=== PATIENT | female | born 1970 | race African-American/Black ===

== ENCOUNTER 2018-03-25 15:23 | Emergency (ER) | payer SELFPAY ==
[2018-03-25 15:31] VITALS: BP 143/62
[2018-03-25] MEDS ORDERED: KETOROLAC TROMETHAMINE 60 MG/2 ML SDV IM ONE (16:17)
[2018-03-25] MEDS ORDERED: DEXAMETHASONE SOD PHOS INJ 10 MG/1 ML VIAL IM ONE (16:17)
[2018-03-25] MEDS ORDERED: LIDOCAINE 5% (700 MG) TRANSDERMAL ADH..PATCH TP ONE (16:17)
--- NOTE | 2018-03-25 16:46 | RADIOLOGY REPORT (SQ) ---
EXAM DESCRIPTION: L SPINE WHOLE COMPLETED DATE/TIME: 03/25/2018 4:30 pm REASON FOR STUDY: pain radiating down both legs COMPARISON: None. NUMBER OF VIEWS: Five views including obliques. TECHNIQUE: AP, lateral, oblique, and sacral radiographic images acquired of the lumbar spine. LIMITATIONS: None. FINDINGS: MINERALIZATION: Normal. SEGMENTATION: L5 looks transitional, largely sacralized in appearance. ALIGNMENT: Normal. VERTEBRAE: Maintained height. No fracture or worrisome bone lesion. DISCS: Mild disc related spurring. Disc spaces relatively preserved. POSTERIOR ELEMENTS: No pars defects. Minimal facet arthropathy without bulky degenerative overgrowth suggested. HARDWARE: None in the spine. PARASPINAL SOFT TISSUES: Normal. PELVIS: Intact as visualized. No fractures or worrisome bone lesions. SI joints intact. OTHER: Suspect artifactual lucency in the proximal aspect of the left 12th rib. Not seen on other ri b views. IMPRESSION: 1. Relatively mild lumbar spondylosis. TECHNICAL DOCUMENTATION: JOB ID: [id number] [employer]- All Rights Reserved Reading location - IP/workstation name: [email or web address]
--- NOTE | 2018-03-25 17:39 | ER Document Report ---
ED Neck/Back Problem - General Chief Complaint: Low Back Pain Stated Complaint: LOWER BACK PAIN Time Seen by Provider: 03/25/18 15:52 Mode of Arrival: Ambulatory Information source: Patient Notes: 48-year-old female was seen here earlier today for complaint of back pain in the lower back area. He states the pain has been for 2-3 days and is radiating to his legs. She states is progressively getting worse. Patient is alert and oriented respirations regular and unlabored speaking in full sentences and is able to ambulate with a steady gait. Patient states she does have a history of back pain but not this bad and not radiating down both legs. She does have a history of high blood pressure and fibroid tumors. 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 TRAVEL OUTSIDE OF THE [place] IN LAST 30 DAYS: No - HPI Patient complains to provider of: Lower back Onset: Other - 2-3 days Where: Other - No definite injury Onset: Chronic - Had back pain before but not this bad. Timing: Worse Quality of pain: Burning, Sharp Severity: Severe Pain Level: 5 Context: Lifting Recent injury: Possibly Associated symptoms: Radiation to leg, Lower back pain. 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 Lives with: Parents Family History: Reviewed & Not Pertinent Patient has suicidal ideation: No Patient has homicidal ideation: No - Past Medical History Cardiac Medical History: Reports: Hx Hypertension Pulmonary Medical History: Reports: None EENT Medical History: Reports: None Neurological Medical History: Reports: None Endocrine Medical History: Reports: None Renal/ Medical History: Reports: Other - Fibroid uterus Musculoskeltal Medical History: Reports Hx Arthritis, Reports Hx Musculoskeletal Deformity - Immunizations Immunizations up to date: Yes Hx Diphtheria, Pertussis, Tetanus Vaccination: Yes Review of Systems - Review of Systems Gastrointestinal: denies: Constipation, Fecal incontinence Genitourinary: denies: Incontinence, Retention Musculoskeletal: Back pain, Muscle pain, Muscle stiffness Physical Exam - Vital signs Vitals: Temp Pulse Resp BP Pulse Ox 99.2 F 96 16 143/62 H 97 03/25/18 15:30 03/25/18 15:30 03/25/18 15:30 03/25/18 15:30 03/25/18 15:30 - Back Back: Normal, Tender. No: Deformity/step-off, CVA tenderness, Vertebra tenderness, Scars, Scoliosis, Wounds - Neurological Neuro grossly intact: Yes Cognition: Normal Orientation: AAOx4 Rohan Coma Scale Eye Opening: Spontaneous Rohan Coma Scale Verbal: Oriented Shaw Coma Scale Motor: Obeys Commands Shaw Coma Scale Total: 15 Speech: Normal Cranial nerves: Normal Cerebellar coordination: Rapid alt. 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 Patient was treated with Toradol Decadron and Lidoderm patch for her back pain with radiation to her legs. Patient is instructed to follow-up with her primary doctor and get a follow-up with a back specialist if this pain continues. Patient was was given prescription for steroids and muscle relaxers for her pain. Patient was given instructions for ice and warm packs and Aspercreme for her pain. After performing a Medical Screening Examination, I estimate there is LOW risk for EXPANDING OR RUPTURED ABDOMINAL AORTIC ANEURYSM, CAUDA EQUINA SYNDROME, EPIDURAL MASS LESION, or HERNIATED DISK CAUSING SEVERE SPINAL STENOSIS, thus I consider the discharge disposition reasonable. I have reevaluated this patient multiple times and no significant life threatening changes are noted. The patient and I have discussed the diagnosis and risks, and we agree with discharging home and close follow-up. We also discussed returning to the Emergency Department immediately if new or worsening symptoms occur with the understanding that symptoms and presentations can change. We have discussed the symptoms which are most concerning (e.g., saddle anesthesia, urinary or bowel incontinence or retention, changing or worsening pain) that necessitate immediate return. - Vital Signs Vital signs: Temp Pulse Resp BP Pulse Ox 99.2 F 96 16 143/62 H 97 03/25/18 15:30 03/25/18 15:30 03/25/18 15:30 03/25/18 15:30 03/25/18 15:30 - Diagnostic Test Radiology reviewed: Image reviewed, Reports reviewed Discharge - Discharge Clinical Impression: Low back pain Qualifiers: Chronicity: acute Back pain laterality: bilateral Sciatica presence: with sciatica Sciatica laterality: bilateral sciatica Qualified Code(s): M54.42 - Lumbago with sciatica, left side Condition: Stable Disposition: HOME, SELF-CARE Instructions: Family Physicians / Practices Additional Instructions: LOW BACK PAIN: Three out of every four people will have an episode of disabling back pain during their lifetime. Most commonly the pain is due to straining of the muscles and ligaments in the low back. Usual treatment includes: (1) Rest on a firm surface. Avoid lying on your stomach. (2) Ice pack the painful area. After a few days, gentle heat may be used intermittently to relax the area, or ice packs can be continued. (3) Medication may be needed -- muscle relaxers and antiinflammatory medicines are commonly used. (4) As the back improves, exercises are prescribed to strengthen the back and abdominal muscles. Your doctor will advise you on the proper care for your back at each stage in your recovery. You may be better in a few days -- or healing may take several weeks. If new symptoms of a "herniated disc" (radiation of pain, numbness, or tingling down the back of the leg or weakness in the leg) occur, you should be re-examined. Further testing may be necessary. STEROID MEDICATION: You have been given a medicine of the cortisone/steroid class. This medication is used to control inflammation or allergy. It is usually only given for a short period of time, until the acute process subsides. There are usually no side effects from short-term use of cortisone-like medications. Some persons feel an increased sense of well-being and are not sleepy at bedtime. Long-term use of cortisone medications is best avoided, unless required for a severe condition. If your condition does not remit, or relapses after the course of corticosteroid medication, you should consult your physician. Stretching Exercises for the Back The physician has recommended that you begin stretching exercises for your back. These are often used even while the back is painful. However, you should notify the physician if the activities seem to increase your pain. PELVIC TILT: Lie flat on your back with knees bent. Tighten your stomach and buttock muscles so it flattens your lower back against the floor. Hold 10 seconds. Repeat 10 times, twice daily. KNEE RAISE: Lying on the back with knees bent, raise one knee to your chest, then the other. Hold both knees against the chest 10 seconds, then lower one knee at a time. Repeat 10 times, twice daily. PARTIAL TRUNK RAISE: Lie face down, arms at your sides. Keeping your waist on the floor, use your arms raise your chest up. Support yourself on your elbows for 30 seconds. Repeat twice daily, increasing the time to two minutes as you recover. Toradol Injection You have been given an injection of ketorolac tromethamine (Toradol). This is an excellent, safe drug for pain control. It also has potent antiinflammatory action. You should have significant pain relief within about one hour. Toradol is not addicting and is non-sedating. It does not interfere with driving or work. Call or return if you develop itching, hives, shortness of breath, or rash. MUSCLE RELAXERS: Muscle relaxing medications are usually prescribed for acute muscle spasm or injury to the neck and back. They are often combined with antiinflammatory pain medication for increased relief. You may stop the muscle relaxer when the pain and stiffness have improved. Start the medication again if spasms recur. Muscle relaxers may cause drowsiness, especially with the first dose. Do not operate machinery or drive while under the effects of the medication. Most muscle relaxers last up to 24 hours. Do not combine the medication with alcohol. ICE PACKS: Apply ice packs frequently against the painful area. Many different schedules are recommended, such as "20 minutes on, 20 minutes off" or "one hour ice, two hours rest." If you need to work, you may need to go longer between ice treatments. You should plan to have the area ice packed AT LEAST one fourth of the time. The ice should be applied over the wrap, tape, or splint, or over a layer of cloth -- not directly against the skin. Some ice bags have a built-in cloth and can be put directly on the skin. WARM PACKS: After approximately two days, apply gentle heat (such as a heating pad or hot water bottle) for about 20 to 30 minutes about every two hours -- at least four times daily. Warmth and elevation will help you make a more rapid recovery , and will ease the pain considerably. Do not use HOT heat, and never apply heat for longer than 30 minutes. The continuous heat can invisibly damage skin and muscles -- even when no burn is seen on the surface. Damaged muscles can make you MORE sore. You will treated with a Lidoderm patch in the emergency room. This needs to be removed in 12 hours. A prescription of Lidoderm patches is very expensive. You can get the almost equivalent medication in a salon pause or Aspercreme both of which are [id number]. Please use them according to the package instructions. FOLLOW-UP CARE: If you have been referred to a physician for follow-up care, call the physician s office for an appointment as you were instructed or within the next two days. If you experience worsening or a significant change in your symptoms, notify the physician immediately or return to the Emergency Department at any time for re-evaluation. Prescriptions: Cyclobenzaprine HCl [Flexeril 10 mg Tablet] 10 mg PO TIDP PRN #15 tab PRN Reason: Prednisone [Deltasone 20 mg Tablet] 3 tab PO DAILY 5 Days tablet Forms: Elevated Blood Pressure, Return to Work
== END 2018-03-25 17:41 | disposition home or self-care (01) ==
LOC: ER 15:23
DX: M54.42 Lumbago with sciatica, left side (principal); M79.604 Pain in right leg; M79.605 Pain in left leg; I10 Essential (primary) hypertension; Z87.891 Personal history of nicotine dependence
CPT/HCPCS: 99283; 96372; 72110; J1885; J1100

== ENCOUNTER 2019-11-20 06:55 | Emergency (ER) | payer BC ==
--- NOTE | 2019-11-20 08:10 | RADIOLOGY REPORT (SQ) ---
EXAM DESCRIPTION: HAND LEFT 3 VIEWS COMPLETED DATE/TIME: 11/20/2019 7:51 am REASON FOR STUDY: left hand pain COMPARISON: None. EXAM PARAMETERS: NUMBER OF VIEWS: Three views. TECHNIQUE: AP, lateral and oblique radiographic images acquired of the left hand. LIMITATIONS: None. FINDINGS: MINERALIZATION: Normal. BONES: No acute fracture or dislocation. No worrisome bone lesions. JOINTS: No effusions. SOFT TISSUES: No soft tissue swelling. No foreign body. OTHER: No other significant finding. IMPRESSION: NEGATIVE STUDY OF THE LEFT HAND. NO RADIOGRAPHIC EVIDENCE OF ACUTE INJURY. TECHNICAL DOCUMENTATION: JOB ID: [id number] 2010 [employer]- All Rights Reserved Reading location - IP/workstation name: [email or web address]
--- NOTE | 2019-11-20 08:48 | ER Document Report ---
ED General - General Chief Complaint: Numbness Stated Complaint: NUMBNESS LEFT HAND Time Seen by Provider: 11/20/19 07:36 Mode of Arrival: Ambulatory Information source: Patient TRAVEL OUTSIDE OF THE [place] IN LAST 30 DAYS: Yes - HPI Notes: Patient presents with left hand pain and some mild numbness. She states the pain is mainly about the metacarpophalangeal joint of the thumb she has noticed some swelling there as well. She states the numbness does spread to all fingers. She states she is unable to make a fist due to pain and this pain seems to be in all the joints of the hand. 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 She denies any previous history of similar problems. No other joint pain. No other numbness or weakness anywhere. This started 2 to 3 days ago. It is worse with movement and better with rest. The pain radiates throughout the hand. It is mild to moderate intensity. It is an aching sensation. No known trauma. - Related Data Allergies/Adverse Reactions: No Known Allergies Allergy (Verified 11/20/19 07:01) Past Medical History - General Information source: Patient - Social History Smoking Status: Former Smoker Frequency of alcohol use: None Drug Abuse: None Family History: Reviewed & Not Pertinent Patient has suicidal ideation: No Patient has homicidal ideation: No - Past Medical History Cardiac Medical History: Reports: Hx Hypertension Renal/ Medical History: Denies: Hx Peritoneal Dialysis Musculoskeletal Medical History: Reports Hx Arthritis, Reports Hx Musculoskeletal Deformity - Immunizations Immunizations up to date: Yes Hx Diphtheria, Pertussis, Tetanus Vaccination: Yes Review of Systems - Review of Systems Constitutional: denies: Chills, Fever Cardiovascular: denies: Chest pain, Palpitations Respiratory: denies: Cough, Short of breath -: Yes All other systems reviewed and negative Physical Exam - Vital signs Vitals: Temp Pulse Resp BP Pulse Ox 98.0 F 87 16 145/79 H 98 11/20/19 07:06 11/20/19 07:06 11/20/19 07:06 11/20/19 07:06 11/20/19 07:06 Interpretation: Normal - General General appearance: Appears well, Alert - HEENT Head: Normocephalic, Atraumatic Eyes: Normal Pupils: PERRL - Respiratory Respiratory status: No respiratory distress Chest status: Nontender Breath sounds: Normal Chest palpation: Normal - Cardiovascular Rhythm: Regular Heart sounds: Normal auscultation Murmur: No - Abdominal Inspection: Normal Distension: No distension Bowel sounds: Normal Tenderness: Nontender Organomegaly: No organomegaly - Back Back: Normal, Nontender - Extremities General upper extremity: Normal color, Normal temperature, Other - Left hand has some mild swelling about the thenar eminence. She does have tenderness to palpation of the thenar eminence. There is no induration or evidence of infection. Patient is unable to make a complete fist on the left and if I try to passively close her fingers she states that this increases her pain. General lower extremity: Normal inspection, Nontender, Normal color, Normal ROM, Normal temperature, Normal weight bearing. No: Magui's sign - Neurological Neuro grossly intact: Yes Cognition: Normal Orientation: AAOx4 Rohan Coma Scale Eye Opening: Spontaneous Rohan Coma Scale Verbal: Oriented [place] Coma Scale Motor: Obeys Commands Rohan Coma Scale Total: 15 Speech: Normal Motor strength normal: LUE, RUE, LLE, RLE Sensory: Normal - Psychological Associated symptoms: Normal affect, Normal mood - Skin Skin Temperature: Warm Skin Moisture: Dry Skin Color: Normal Course - Vital Signs Vital signs: Temp Pulse Resp BP Pulse Ox 98.0 F 87 16 145/79 H 98 11/20/19 07:06 11/20/19 07:06 11/20/19 07:06 11/20/19 07:06 11/20/19 07:06 - Diagnostic Test Radiology reviewed: Image reviewed, Reports reviewed Procedures - Immobilization Left Wrist Time completed: 08:53 Pre-Proc Neuro Vasc Exam: Normal Immobilizer type: Cock-up Performed by: RN Post-Proc Neuro Vasc Exam: Normal Alignment checked and good: Yes Discharge - Discharge Clinical Impression: Arthralgia of left hand Condition: Stable Disposition: HOME, SELF-CARE Instructions: Osteoarthritis ([facility]) Prescriptions: Indomethacin [Indocin 50 Mg Capsule] 50 mg PO BID 5 Days #10 capsule Forms: Return to Work Referrals: [facility] [Provider Group] - Follow up in 3-5 days
[2019-11-20 09:56] VITALS: BP 121/57
== END 2019-11-20 09:57 | disposition home or self-care (01) ==
LOC: ER 06:55
DX: M25.542 Pain in joints of left hand (principal); R20.0 Anesthesia of skin; M79.89 Other specified soft tissue disorders; I10 Essential (primary) hypertension; Z87.891 Personal history of nicotine dependence
CPT/HCPCS: 99284

== ENCOUNTER 2019-11-26 18:35 | Emergency (ER) | payer BC | END 2019-11-27 01:31 | disposition left against medical advice (07) | LOC: ER 18:35 | DX: Z53.21 Procedure and treatment not carried out due to patient leaving prior to being seen by health care provider (principal) ==

== ENCOUNTER 2020-03-28 20:54 | Emergency (ER) | payer BC ==
[2020-03-28 21:53] VITALS: BP 167/89
[2020-03-28] MEDS ORDERED: CEFTRIAXONE INJ 1000 MG VIAL IM ONE (23:47)
--- NOTE | 2020-03-28 23:53 | ER Document Report ---
ED General - General Chief Complaint: Rash Stated Complaint: PAINFUL RASH ON LEG Notes: Patient is a 50-year-old -[place] female with a history of carpal tunnel and arthritis who presents to the emergency department with a chief complaint of red painful area of her lower leg on the left that she first noticed tonight. She states she felt a fleeting pain and thought something was on her leg reached down to brush it away and noticed a redness to the medial mid lower leg. She states she started feeling around and noticed the area was very tender to the touch and very warm. She denies any drainage. Denies any recent fevers, chills or night sweats. No other pain, complaints or concerns at this time. Patient denies any immunosuppressive conditions or medicines. TRAVEL OUTSIDE OF THE [place] IN LAST 30 DAYS: Yes - Related Data Allergies/Adverse Reactions: No Known Allergies Allergy (Verified 11/20/19 07:01) Past Medical History - Social History Smoking Status: Unknown if Ever Smoked Family History: Reviewed & Not Pertinent - Past Medical History Cardiac Medical History: Reports: Hx Hypertension Renal/ Medical History: Denies: Hx Peritoneal Dialysis Musculoskeletal Medical History: Reports Hx Arthritis, Reports Hx Musculoskeletal Deformity - Immunizations Immunizations up to date: Yes Hx Diphtheria, Pertussis, Tetanus Vaccination: Yes Review of Systems - Review of Systems Skin: Change in color -: Yes All other systems reviewed and negative Physical Exam - Vital signs Vitals: Temp Pulse Resp BP Pulse Ox 98.7 F 101 H 20 167/89 H 100 03/28/20 21:51 03/28/20 21:51 03/28/20 21:51 03/28/20 21:51 03/28/20 21:51 - General General appearance: Appears well, Alert In distress: None - Respiratory Respiratory status: No respiratory distress Chest status: Nontender Breath sounds: Normal Chest palpation: Normal - Cardiovascular Rhythm: Regular Heart sounds: Normal auscultation - Extremities General lower extremity: Other - Chronic lower extremity edema bilaterally consistent with poor venous return. 2+ DP/PT bilaterally. There is an area of erythema and increased warmth primarily to the posterior left lower leg with some centralized desquamation and expansion medially towards the anterior surface, consistent with a cellulitis. No fluctuance or fluid collection appreciated. No proximal streaking. Negative Homans of the calf of the affected leg. - Neurological Neuro grossly intact: Yes Cognition: Normal Orientation: AAOx4 - Psychological Associated symptoms: Normal affect, Normal mood - Skin Skin Color: Other - As described above Course - Re-evaluation Re-evalutation: 03/28/20 23:54 History and physical consistent with a cellulitis. Patient is afebrile, no evidence of systemic infection. Given a gram of Rocephin IM here. Sent home on Bactrim. She will follow-up in 2 to 3 days with her regular doctor for wound recheck and reevaluation. Advise she return here or any ER immediately with any new, persistent or worsening symptoms. She verbalized understood and agreed. - Vital Signs Vital signs: Temp Pulse Resp BP Pulse Ox 98.7 F 101 H 20 167/89 H 100 03/28/20 21:51 03/28/20 21:51 03/28/20 21:51 03/28/20 21:51 03/28/20 21:51 Discharge - Discharge Clinical Impression: Cellulitis Qualifiers: Site of cellulitis: extremity Site of cellulitis of extremity: lower extremity Laterality: unspecified laterality Qualified Code(s): L03.119 - Cellulitis of unspecified part of limb Condition: Stable Disposition: HOME, SELF-CARE Instructions: Cellulitis ([facility]) Additional Instructions: Follow-up with your regular doctor in 2 to 3 days for reevaluation. Return here or any ER immediately with any new, persistent or worsening symptoms. Prescriptions: Sulfamethoxazole/Trimethoprim [Bactrim Ds Tablet] 1 each PO BID #20 tablet
== END 2020-03-28 23:58 | disposition home or self-care (01) ==
LOC: ER 20:54
DX: L03.119 Cellulitis of unspecified part of limb (principal); R60.0 Localized edema; I10 Essential (primary) hypertension
CPT/HCPCS: 99283; 96372; J0696

== ENCOUNTER 2020-05-12 16:39 | Emergency (ER) | payer BC ==
--- NOTE | 2020-05-12 17:04 | ER Document Report ---
ED Medical Screen (RME) - General Chief Complaint: Lower Abdominal Pain Stated Complaint: BLOOD IN URINE Time Seen by Provider: 05/12/20 16:55 Mode of Arrival: Ambulatory Information source: Patient Notes: 50-year-old female presents to ED for complaint of blood in urine lower abdominal and lower back pain. She does have a history of fibroid uterus as well as irregular heart rate and 1 kidney does not function properly. She is alert oriented respirations regular nonlabored speaking in full sentences. I have greeted and performed a rapid initial assessment of this patient. A [facility] prehensive ED assessment and evaluation of the patient, analysis of test results and completion of medical decision making process will be conducted by an additional ED providers. TRAVEL OUTSIDE OF THE [place] IN LAST 30 DAYS: Yes - Related Data Allergies/Adverse Reactions: No Known Allergies Allergy (Verified 05/12/20 16:53) Past Medical History - Social History Chew tobacco use (# tins/day): No Frequency of alcohol use: None Drug Abuse: None - Past Medical History Cardiac Medical History: Reports: Hx Hypertension Renal/ Medical History: Denies: Hx Peritoneal Dialysis Musculoskeltal Medical History: Reports Hx Arthritis, Reports Hx Musculoskeletal Deformity - Immunizations Immunizations up to date: Yes Hx Diphtheria, Pertussis, Tetanus Vaccination: Yes
[2020-05-12 17:50] LABS: AMORPHOUS SEDIMENT,URINE TRACE /HPF; APPEARANCE,URINE CLOUDY; BILIRUBIN,URINE NEGATIVE (NEGATIVE); COLOR,URINE RED; GLUCOSE, URINE NEGATIVE (NEGATIVE); KETONES,URINE NEGATIVE (NEGATIVE); LEUKOCYTE ESTERASE,URINE MODERATE (NEGATIVE); NITRITE,URINE NEGATIVE (NEGATIVE); PROTEIN,URINE 100 mg/dL (NEGATIVE); URINE SPECIFIC GRAVITY 1.016; UROBILINOGEN,URINE NEGATIVE mg/dL (<2.0)
[2020-05-12 18:05] LABS: ALBUMIN 4.5 g/dL (3.5-5.0); ALKALINE PHOSPHATASE 68 U/L (38-126); ANION GAP 8 (5-19); ASPARTATE AMINO TRANSFERASE 15 U/L (14-36); BILIRUBIN,TOTAL 0.3 mg/dL (0.2-1.3); BLOOD UREA NITROGEN 8 mg/dL (7-20); CALCIUM 9.3 mg/dL (8.4-10.2); CARBON DIOXIDE 27 mmol/L (22-30); CHLORIDE 98 mmol/L (98-107); GLUCOSE 102 mg/dL (75-110); POTASSIUM 4.1 mmol/L (3.6-5.0); TOTAL PROTEIN 8.4 g/dL (6.3-8.2)
--- NOTE | 2020-05-12 18:54 | RADIOLOGY REPORT (SQ) ---
EXAM DESCRIPTION: U/S NON-OB PELVIS W/O DOP IMAGES COMPLETED DATE/TIME: 05/12/2020 6:38 pm REASON FOR STUDY: Pelvic pain blood in her urine COMPARISON: None. TECHNIQUE: Dynamic and static grayscale images acquired of the pelvis via transabdominal approach an d recorded on PACS. Additional selected color Doppler and spectral images recorded. LIMITATIONS: Limited examination due to the patient's body habitus. FINDINGS: UTERUS: Significant marked enlargement of the uterus. The patient has a history of uteri ne fibroids. ENDOMETRIAL STRIPE: Not visualized. CERVIX: Not visualized. RIGHT OVARY AND DOPPLER: Not visualized due to the enlarged uterus. LEFT OVARY AND DOPPLER: Not visualized due to the enlarged uterus. FREE FLUID: None noted. OTHER: No other significant finding. MEASUREMENTS: UTERUS: 21.6 x 13.3 x 11.8 cm. IMPRESSION: 1. The examination is limited due to the patient's body habitus and significant marked enlargement of the uterus. The patient has a history of uterine fibroids. 2. The cervix, endometrial stripe, and ovaries are not visualized, limited by the enlarged uterus. TECHNICAL DOCUMENTATION: JOB ID: [id number] 2010 [employer]- All Rights Reserved Rev-02/16 Reading location - IP/workstation name: [email or web address]
[2020-05-12] MEDS ORDERED: KETOROLAC TROMETHAMINE INJ/PF 30 MG/1 ML SDV IV ONE (19:09)
[2020-05-12] MEDS ORDERED: CEFTRIAXONE INJ 1000 MG VIAL IV ONE (19:09)
[2020-05-12] MEDS ORDERED: NORMAL SALINE 1000 ML 1,000 ML IV ONE (19:10)
[2020-05-12] MEDS ORDERED: FENTANYL CITRATE INJ/PF 100 MCG/2 ML AMPUL IV ONE (19:16)
[2020-05-12] MEDS ORDERED: ONDANSETRON HCL INJ/PF 4 MG/2 ML SDV IV ONE (19:16)
[2020-05-12 19:24] LABS: ABSOLUTE EOSINOPHILS # (AUTO) 0.1 10^3/uL (0.0-0.6); ABSOLUTE LYMPHOCYTES (AUTO) 0.6 10^3/uL (0.5-4.7); ABSOLUTE MONOCYTES (AUTO) 0.5 10^3/uL (0.1-1.4); ABSOLUTE NEUT (AUTO) 7.3 10^3/uL (1.7-8.2); BASOPHILS % (AUTO) 0.4 % (0-2); EOSINOPHILS % (AUTO) 1.2 % (0-6); HEMATOCRIT 26.2 % (36.0-47.0); LYMPHOCYTES % (AUTO) 6.9 % (13-45); MEAN CORPUSCULAR HEMOGLOBIN 16.8 pg (27.0-33.4); MEAN CORPUSCULAR HGB CONC 28.4 g/dL (32.0-36.0); MONOCYTES % (AUTO) 5.6 % (3-13); PLATELET COUNT 368 10^3/uL (150-450); RED BLOOD COUNT 4.44 10^6/uL (3.72-5.28); RED CELL DISTRIBUTION WIDTH 20.3 % (11.5-14.0); SEGMENTED NEUTROPHILS % (AUTO) 85.9 % (42-78); TOTAL CELLS COUNTED % (AUTO) 100 %; WHITE BLOOD COUNT 8.4 10^3/uL (4.0-10.5)
--- NOTE | 2020-05-12 19:24 | RADIOLOGY REPORT (SQ) ---
EXAM DESCRIPTION: CT ABD/PELVIS NO ORAL OR IV IMAGES COMPLETED DATE/TIME: 05/12/2020 6:45 pm REASON FOR STUDY: hematuria and abd. pain COMPARISON: None. TECHNIQUE: CT scan of the abdomen and pelvis performed without intravenous or oral contrast. Images reviewed with lung, soft tissue, and bone windows. Reconstructed coronal and sagittal MPR images revi ewed. All images stored on PACS. All CT scanners at this facility use dose modulation, iterative reconstruction, and/or weight based d osing when appropriate to reduce radiation dose to as low as reasonably achievable (ALARA). [facility]: Dose Right [facility]: CareDose [facility]: Dose Right [facility]: Teradose 4D [facility]: [place] RADIATION DOSE: CT Rad equipment meets quality standard of care and radiation dose reduction techniq ues were employed. CTDIvol: 19.1 mGy. DLP: 1030 mGy-cm. LIMITATIONS: None. FINDINGS: LOWER CHEST: No significant findings. No nodules or infiltrates. NON-CONTRASTED LIVER, SPLEEN, ADRENALS: Evaluation limited by lack of IV contrast. No identified sign ificant masses. PANCREAS: No masses. No peripancreatic inflammatory changes. GALLBLADDER: No identified stones by CT criteria. No inflammatory changes to suggest cholecystitis. RIGHT KIDNEY AND URETER: No suspicious masses. Assessment limited by lack of IV contrast. No signif icant calcifications. No hydronephrosis or hydroureter. LEFT KIDNEY AND URETER: No suspicious masses. Assessment limited by lack of IV contrast. No signifi cant calcifications. No hydronephrosis or hydroureter. AORTA AND RETROPERITONEUM: No aneurysm. No retroperitoneal masses or adenopathy. BOWEL AND PERITONEAL CAVITY: The bowel is displaced to the right and left of the midline by the enla rged abdominopelvic mass. No evidence of obstruction. APPENDIX: Normal. PELVIS, BLADDER, AND ABDOMINAL WALL: A very large umbilical hernia contains engorged mesenteric vess els, fat and loculated collections of fluid. There is a hazy appearance to the fat which may be on t he basis of inflammatory/edematous changes. A smaller periumbilical hernia is noted adjacent to the larger hernia. The overlying subcutaneous tissue in the mid abdomen and pelvic region are mildly thi ckened with linear reticulation noted suggesting edema. Considerations for these findings include ob struction/strangulation of the hernias. Extremely large abdominopelvic mass extends from the pelvis up into the mid abdomen, to about the lev el of the L1-L2 disc space. There are multiple heterogenous appearing masses within the abdominopelv ic mass. One of the largest is exophytic and extends from the midline to the left side of the abdome n, and measures 18.5 cm x 11.2 cm. There are several small calcifications present within the exophyt ic mass and the abdominopelvic mass as well as a round calcified 2.9 cm in AP diameter mass. A small amount collection of free fluid lies to the left of the mass, in the lower left quadrant of the abdo men. Considerations for this finding includes an extremely large fibroid uterus, with the possibilit y of underlying malignant pathology not entirely excluded. The urinary bladder is incompletely diste nded. BONES: No significant findings. OTHER: No other significant finding. IMPRESSION: 1. A very large umbilical hernia with a smaller adjacent periumbilical hernia identifie d superior and adjacent to the larger hernia. The constellation of findings as described above sugge st strangulation/obstruction of the hernias. 2. Extremely large massive abdominopelvic mass as detailed above. Considerations for this finding i ncludes fibroid uterus. A small collection of fluid lies adjacent to the left side of the mass, in t he left lower quadrant of the abdomen. Correlation is definitely suggested as the possibility of mal ignant pathology is not entirely excluded. COMMENT: 1. The results of this examination were discussed with the emergency department provider o n 05/12/2020 at 19:14 hours. Quality ID # [id number]: Final reports with documentation of one or more dose reduction techniques (e.g., Au tomated exposure control, adjustment of the mA and/or kV according to patient size, use of iterative reconstruction technique) TECHNICAL DOCUMENTATION: JOB ID: [id number] 2010 [employer]- All Rights Reserved Reading location - IP/workstation name: [email or web address]
--- NOTE | 2020-05-12 19:36 | ER Document Report ---
ED General - General Chief Complaint: Lower Abdominal Pain Stated Complaint: BLOOD IN URINE Time Seen by Provider: 05/12/20 16:55 Mode of Arrival: Ambulatory TRAVEL OUTSIDE OF THE [place] IN LAST 30 DAYS: Yes - HPI Notes: Chief complaint: Lower abdominal pain History of present illness: 50-year-old female who is followed by primary care clinic at [facility] with history of a large fibroid uterus, chronic iron deficiency anemia and umbilical hernia with no prior surgery now presents with pain of lower abdomen on onset sometime after she awakened this morning. This was not associated with any traumatic event. She denies nausea vomiting. She denies fever chills. She does have some pain with urination and also notes that she has had some gross blood in her urine today. She denies any known history of renal stones. - Related Data Allergies/Adverse Reactions: No Known Allergies Allergy (Verified 05/12/20 16:53) Past Medical History - General Information source: Patient, ON LICENSE OF [facility] Records Last Menstrual Period: 04/23/20 - Social History Smoking Status: Never Smoker Chew tobacco use (# tins/day): No Frequency of alcohol use: None Drug Abuse: None Lives with: Family Family History: Reviewed & Not Pertinent Patient has homicidal ideation: No - Past Medical History Cardiac Medical History: Reports: Hx Hypertension Endocrine Medical History: Denies: Hx Diabetes Mellitus Type 1, Hx Diabetes Mellitus Type 2 Renal/ Medical History: Denies: Hx Peritoneal Dialysis GI Medical History: Reports: Other - History of umbilical hernia which is never been repaired Musculoskeletal Medical History: Reports Hx Arthritis, Reports Hx Musculoskeletal Deformity Past Surgical History: Reports: None - Immunizations Immunizations up to date: Yes Hx Diphtheria, Pertussis, Tetanus Vaccination: Yes Review of Systems - Review of Systems Notes: Constitutional: Negative for fever. HENT: Negative for sore throat. Eyes: Negative for visual changes. Cardiovascular: Negative for chest pain. Respiratory: Negative for shortness of breath. Gastrointestinal: As per HPI. Genitourinary: As per HPI. Musculoskeletal: Negative for back pain. Skin: Negative for rash. Neurological: Negative for headaches, weakness or numbness. 10 point ROS negative except as marked above and in HPI. Physical Exam - Vital signs Vitals: Temp Pulse Resp BP Pulse Ox 97.5 F 98 16 153/91 H 100 05/12/20 16:43 05/12/20 16:43 05/12/20 16:43 05/12/20 16:43 05/12/20 16:43 - Notes Notes: GENERAL: Morbidly obese middle-aged female holding her lower abdomen complaining of moderate pain. SKIN: Good turgor no rashes. HEAD: Normocephalic atraumatic. EYES: PERRLA. EOMI. Conjunctivae and sclerae clear. EARS: CANALS AND TMS CLEAR. NOSE: CLEAR. MOUTH: Moist mucosa. Good dentition. No stridor or edema. No drooling. NECK: Supple. No masses or thyromegaly. No adenopathy. Carotids 2+ without bruits. No JVD. BACK: Symmetrical without tenderness. CHEST: Respirations unlabored. Breath sounds clear and symmetrical. HEART: Regular rhythm. No murmur gallop or rub. ABDOMEN: Obese with tender mass midline below the umbilicus. Patient is also tender in suprapubic area. No hepatosplenomegaly bowel sounds normally active. No bruits. GENITALIA: Deferred. EXTREMITIES: No edema. No calf tenderness. Cap refill less than 1.5 seconds. Dorsalis pedis and posterior tibial pulses 3+ and symmetrical. NEUROLOGICAL: GCS 15. Alert and oriented x3. Fluent speech. Cranial nerves II through XII intact. Sensorimotor and cerebellar normal. Normal tone. PSYCHIATRIC: Anxious affect. Course - Re-evaluation Re-evalutation: 05/12/20 20:24 Large strangulated umbilical hernia present we will consult Dr. Zavala from general surgery. Patient is also anemic 7.4 g hemoglobin and has microcytic indices consistent with history of hypermenorrhea related to fibroid uterus. Additionally has findings suggestive of a urinary tract infection. I have given her dose of IV Rocephin. 05/12/20 21:31 Appreciate consultation note from Dr. Zavala from general surgery. He feels that there is no evidence of herniation of the intestinal structures and that this is a chronic herniation of primarily omentum and subcutaneous fat. He does not feel there is any current indication for urgent surgery. Patient is very comfortable after 1 dose of fentanyl here. She is also received IV Rocephin for presumed UTI. Urine culture has been sent. She is very anemic with a hemoglobin of 7.4 g but this appears to be chronic and she is not ortho static. Her indices are small consistent with chronic blood loss and she has a history of hypermenorrhea related to her fibroid uterus although she is not currently having any vaginal bleeding. I am going to put her on some oral iron. We will give her some as needed pain medication for home and will keep her on oral antibiotics for her UTI. I recommend she contact her primary physician at [facility] tomorrow morning and arrange urgent follow-up regarding all these problems. Findings, clinical impression and plan of treatment have been discussed with patient/family. Understanding of current findings and recommendations has been acknowledged by them and there is agreement regarding disposition and follow-up. - Vital Signs Vital signs: Temp Pulse Resp BP Pulse Ox 97.5 F 98 16 153/91 H 100 05/12/20 16:43 05/12/20 16:43 05/12/20 16:43 05/12/20 16:43 05/12/20 16:43 - Laboratory Result Diagrams: 05/12/20 18:59 05/12/20 17:24 Laboratory results interpreted by me: 05/12/20 05/12/20 05/12/20 17:24 17:24 18:59 Hgb 7.4 L Hct 26.2 L MCV 59 L MCH 16.8 L MCHC 28.4 L RDW 20.3 H Lymph % (Auto) 6.9 L Seg Neutrophils % 85.9 H Sodium 133.4 L Lactic Acid Total Protein 8.4 H Urine Protein 100 H Urine Blood LARGE H Ur Leukocyte Esterase MODERATE H 05/12/20 20:28 Hgb Hct MCV MCH MCHC RDW Lymph % (Auto) Seg Neutrophils % Sodium Lactic Acid 2.3 H Total Protein Urine Protein Urine Blood Ur Leukocyte Esterase - Diagnostic Test Radiology reviewed: Reports reviewed - Radiologist reports large strangulated umbilical hernia on noncontrast CT abdomen/pelvis with very large fibroid uterus also present. Discharge - Discharge Clinical Impression: Fibroid uterus, Strangulated umbilical hernia, Chronic microcytic anemia, Hemorrhagic cystitis Condition: Stable Disposition: HOME, SELF-CARE Additional Instructions: Umbilical Hernia There is a hernia in the belly-button area, called an umbilical hernia. There's a weak spot in the abdominal wall where the umbilical cord was attached. Sometimes this weak spot opens up, and bowel slips out of the abdominal cavity, creating a bulge under the skin at the naval. In infants, a small umbilical hernia may seal off by itself. Adults usually need surgery to repair the hernia. It's important that you follow up as recommended. For now, avoid straining, heavy lifting, and vigorous exercise. If the hernia has just appeared and the naval area is painful, apply ice packs to reduce swelling. Complications occur if bowel gets tightly stuck in the hernia. You should come back immediately if the area becomes increasingly painful, swollen, or discolored, or if you develop abdominal pain and vomiting. Hematuria Hematuria, or blood in your urine, can be caused by minor medical problems, such as a bladder infection, or by more serious medical conditions, such as kidney stones or even tumors of the bladder or kidney. If the cause of the hematuria is known (such as a bladder infection) and can be treated, it may not need further evaluation. If the cause is not known, it will usually require further evaluation by a specialist, such as a urologist. In particular, unexplained hematuria in the older patient must be evaluated to rule out a serious condition, such as a bladder or kidney tumor. If the hematuria worsens or you are passing clots and then are unable to urinate, you should be re-evaluated. A catheter may need to be placed in the bladder to permit passage of urine. If you develop high fever, severe pain, or other new or worsening symptoms, return to the Emergency Department for re- evaluation. Urinary Tract Infection Your evaluation indicates that you have a urinary tract infection. This is due to germs growing in the bladder. This is a common problem. This infection usually responds quickly to antibiotics. Your antibiotic should be taken exactly as prescribed. Drink plenty of fluids -- three to four quarts a day. Occasionally, a bladder anesthetic will be prescribed to help stop the feeling of urgency until the antibiotic has a chance to clear the infection. This may cause your urine to be dark orange. Certain urine infections require a culture. If the doctor obtained a culture, the results will be back in two days. You should call to see if a change in treatment is needed. A repeat urinalysis after you finish treatment is often recommended. The physician will let you know if further testing is required. Call the doctor if you develop fever, chills, flank pain, inability to urinate, or blood in the urine. Anemia, Iron Deficiency You have anemia (a lower than normal amount of red blood cells). Our tests show it's due to lack of iron in your body. In infants and children, iron deficiency is usually due to lack of iron in the diet. In adults, it's most often caused by blood loss (heavy periods or intestinal bleeding) or by . If the cause of iron deficiency is not clear, we evaluate for hidden intestinal bleeding. Another possible cause is failure to absorb iron properly. Iron-deficiency is treated with iron supplements. Iron pills can upset your stomach and cause constipation. Taking it with food decreases nausea. Expect the stool to become darker (but not black). Taking iron with a juice high in vitamin C (orange juice, tomato juice) increases absorption. You can increase your dietary iron by eating liver, oysters, and lean beef; wheat germ, peas, and lentils; and molasses, dried prunes, spinach, and broccoli. Contact the doctor at once if you note black or tarry-looking stools, bloody vomiting, shortness of breath, chest pain, or faintness. Contact your doctor at [facility] tomorrow for follow-up on all of your problems. You may return to the emergency department for new or worsening problems: Uncontrolled pain Development of vomiting High fever/shaking chills Fainting Overall worsening Prescriptions: Tramadol HCl [Ultram 50 mg Tablet] 50 mg PO Q4HP PRN #12 tab PRN Reason: Cephalexin Monohydrate [Keflex 500 mg Capsule] 500 mg PO Q6H 5 Days capsule Referrals: [facility] [Provider Group] - Follow up as needed
[2020-05-12 19:43] LABS: HEMOGLOBIN 7.4 g/dL (12.0-15.5)
[2020-05-12 19:44] LABS: MEAN CORPUSCULAR VOLUME 59 fl (80-97)
[2020-05-12 19:53] LABS: POLYCHROMASIA SLIGHT
[2020-05-12 19:54] LABS: ANISOCYTOSIS 2+; OVALOCYTES 1+
[2020-05-12 19:55] LABS: HYPOCHROMASIA 3+; PLATELET COMMENT ADEQUATE; TEAR DROP CELLS SLIGHT
--- NOTE | 2020-05-12 21:10 | PDOC CONSULTATION ---
Consultation Consult Date: 05/12/20 Attending physician:: HERMINIA LLANES Provider Consulted: KADEEM THOMAS Consult reason:: umbilical hernia History of Present Illness History of Present Illness: SIENNA PENDLETON is a 50 year old female who is followed by primary care clinic at [facility] with history of a large fibroid uterus, chronic iron deficiency anemia and umbilical hernia with no prior surgery now presents with pain of lower abdomen on onset sometime after she awakened this morning. This was not associated with any traumatic event. She denies nausea vomiting. She denies fever chills. She does have some pain with urination and also notes that she has had some gross blood in her urine today. She denies any known history of renal stones. Patient also states she has had a large umbilical mass protrusion consistent with this hernia for quite a while. She states that it does not get bigger or smaller and always remains the same size and currently does not have any any more significant pain than usual in her abdomen. She presented today because of blood in her urine. Denies any nausea or vomiting or constipation. Past Medical History Cardiac Medical History: Reports: Hypertension Endocrine Medical History: Denies: Diabetes Mellitus Type 1, Diabetes Mellitus Type 2 GI Medical History: Reports: Other - History of umbilical hernia which is never been repaired Musculoskeltal Medical History: Reports: Arthritis Past Surgical History Past Surgical History: Reports: None Social History Lives with: Family Smoking Status: Never Smoker Electronic Cigarette use?: No Family History Family History: Reviewed & Not Pertinent Parental Family History Reviewed: No Children Family History Reviewed: NA Sibling(s) Family History Reviewed.: NA Medication/Allergy Home Medications: Nitrofurantoin/Nitrofuran Mac [Macrobid 100 mg Capsule] 100 mg PO BID #10 capsule 10/23/12 No Home Medications 10/23/12 Cyclobenzaprine HCl [Flexeril 10 mg Tablet] 10 mg PO TIDP PRN #15 tab 03/25/18 Prednisone [Deltasone 20 mg Tablet] 3 tab PO DAILY 5 Days tablet 03/25/18 Indomethacin [Indocin 50 Mg Capsule] 50 mg PO BID 5 Days #10 capsule 11/20/19 Sulfamethoxazole/Trimethoprim [Bactrim Ds Tablet] 1 each PO BID #20 tablet 03/28/20 Allergies/Adverse Reactions: No Known Allergies Allergy (Verified 05/12/20 16:53) Review of Systems Constitutional: PRESENT: fatigue Eyes: ABSENT: as per HPI, visual disturbances, other Ears: ABSENT: as per HPI, hearing changes, other Nose, Mouth, and Throat: ABSENT: as per HPI, headache(s), mouth pain, sore throat, vertigo, other Breasts: ABSENT: as per HPI, other Cardiovascular: ABSENT: as per HPI, chest pain, dyspnea on exertion, edema, orthropnea, palpitations, other Respiratory: ABSENT: as per HPI, cough, dyspnea, hemoptysis, sputum, other Gastrointestinal: PRESENT: abdominal pain Genitourinary: PRESENT: hematuria Musculoskeletal: ABSENT: as per HPI, back pain, deformity, joint swelling, muscle weakness, other Integumentary: ABSENT: as per HPI, diaphoresis, erythema, lesions, pruritus, rash, wounds, other Neurological: ABSENT: as per HPI, abnormal gait, abnormal movements, abnormal speech, confusion, convulsions, dizziness, focal weakness, frequent falls, lack of coordination, memory loss, numbness, paresthesias, restless legs, syncope, tingling, tremor(s), vertigo, weakness, other Psychiatric: ABSENT: as per HPI, anxiety, depression, hallucinations, homidical ideation, suicidal ideation, other Endocrine: ABSENT: as per HPI, cold intolerance, flushing, heat intolerance, menstrual abnormalities, polydipsia, polyphagia, polyuria, other Hematologic/Lymphatic: ABSENT: as per HPI, easy bleeding, easy bruising, lymphadenopathy, other Allergic/Immunologic: ABSENT: as per HPI, seasonal rhinorrhea, other Physical Exam Vital Signs: Temp Pulse Resp BP Pulse Ox 97.5 F 98 16 153/91 H 100 05/12/20 16:43 05/12/20 16:43 05/12/20 16:43 05/12/20 16:43 05/12/20 16:43 Intake & Output 05/11/20 05/12/20 05/13/20 06:59 06:59 06:59 Weight 118.3 kg General appearance: PRESENT: mild distress Head exam: PRESENT: normocephalic Eye exam: PRESENT: EOMI Ear exam: PRESENT: normal external ear exam Mouth exam: PRESENT: moist Teeth exam: PRESENT: poor dentation Neck exam: PRESENT: full ROM Respiratory exam: PRESENT: clear to auscultation odessa Cardiovascular exam: PRESENT: RRR Pulses: PRESENT: normal radial pulses, normal femoral pulses Vascular exam: PRESENT: normal capillary refill Breast: PRESENT: Normal GI/Abdominal exam: PRESENT: other - There is a periumbilical mass that is firm and tender to palpation consistent with a periumbilical hernia that is not reducible. Rectal exam: PRESENT: deferred Extremities exam: PRESENT: full ROM Musculoskeletal exam: PRESENT: full ROM Neurological exam: PRESENT: alert, awake, oriented to person, oriented to place Psychiatric exam: PRESENT: appropriate affect Skin exam: PRESENT: dry Results Laboratory Results: 05/12/20 18:59 05/12/20 17:24 05/12/20 05/12/20 05/12/20 17:24 17:24 17:24 WBC Cancelled RBC Cancelled Hgb Cancelled Hct Cancelled MCV Cancelled MCH Cancelled MCHC Cancelled RDW Cancelled Plt Count Cancelled Seg Neutrophils % Cancelled Sodium 133.4 L Potassium 4.1 Chloride 98 Carbon Dioxide 27 Anion Gap 8 BUN 8 Creatinine 0.69 Est GFR ( Amer) > 60 Glucose 102 Calcium 9.3 Total Bilirubin 0.3 AST 15 Alkaline Phosphatase 68 Total Protein 8.4 H Albumin 4.5 Lipase 83.9 Serum HCG, Qual NEGATIVE Urine Color Urine Appearance Urine pH Ur Specific [place] Urine Protein Urine Glucose (UA) Urine Ketones Urine Blood Urine Nitrite Ur Leukocyte Esterase Urine WBC (Auto) Urine RBC (Auto) 05/12/20 05/12/20 17:24 18:59 WBC 8.4 RBC 4.44 Hgb 7.4 L Hct 26.2 L MCV 59 L MCH 16.8 L MCHC 28.4 L RDW 20.3 H Plt Count 368 Seg Neutrophils % 85.9 H Sodium Potassium Chloride Carbon Dioxide Anion Gap BUN Creatinine Est GFR ( Amer) Glucose Calcium Total Bilirubin AST Alkaline Phosphatase Total Protein Albumin Lipase Serum HCG, Qual Urine Color RED Urine Appearance CLOUDY Urine pH 7.0 Ur Specific [place] 1.016 Urine Protein 100 H Urine Glucose (UA) NEGATIVE Urine Ketones NEGATIVE Urine Blood LARGE H Urine Nitrite NEGATIVE Ur Leukocyte Esterase MODERATE H Urine WBC (Auto) 155 Urine RBC (Auto) 56 Impressions: Pelvis Ultrasound 05/12/20 16:59 IMPRESSION: 1. The examination is limited due to the patient's body habitus and significant marked enlargement of the uterus. The patient has a history of uterine fibroids. 2. The cervix, endometrial stripe, and ovaries are not visualized, limited by the enlarged uterus. Abdomen/Pelvis CT 05/12/20 18:35 IMPRESSION: 1. A very large umbilical hernia with a smaller adjacent periumbilical hernia identified superior and adjacent to the larger hernia. The constellation of findings as described above suggest strangulation/obstruction of the hernias. 2. Extremely large massive abdominopelvic mass as detailed above. Considerations for this finding includes fibroid uterus. A small collection of fluid lies adjacent to the left side of the mass, in the left lower quadrant of the abdomen. Correlation is definitely suggested as the possibility of malignant pathology is not entirely excluded. Assessment & Plan - Plan Summary Plan Summary: Impression large periumbilical and umbilical hernia with incarcerated omentum. There is no evidence of strangulated bowel. In fact there is no bowel seen within the hernia sac on the CT scan. There are blood vessel seen with a sac without evidence of large amount of blood or free fluid. Patient has a very large fibroid uterus that extends up to her midline and in fact above the hernia. She is also complaining of hematuria. Patient is followed at [facility] for this large fibroid uterus and she has appointments scheduled. She suggests that there are plans to do a hysterectomy. In light of the fact that there is no strangulated small bowel or colon and the patient only has minimum symptoms. She states that the hernia remains as it was for the last few months. There is no indication for emergency surgical intervention at this time. The patient should follow-up with her physicians at [facility]. Also work-up should be entertained for her hematuria.
[2020-05-12 21:38] VITALS: BP 152/93
[2020-05-13 12:27] LABS: PATH REVIEW PATHOLOGIST REVIEWED
== END 2020-05-12 21:58 | disposition home or self-care (01) ==
LOC: ER 16:39
DX: K42.0 Umbilical hernia with obstruction, without gangrene (principal); N30.91 Cystitis, unspecified with hematuria; D25.9 Leiomyoma of uterus, unspecified; D50.9 Iron deficiency anemia, unspecified; I10 Essential (primary) hypertension; E66.01 Morbid (severe) obesity due to excess calories
CPT/HCPCS: 99285; 96361; 96375; 96365; 36415; 83605; 83690; 84703; 85025; 80053; 81001; 76856; 74176; J3010; J0696; J2405; J7030